=== PATIENT | male | born 1955 | race Caucasian/White ===

== ENCOUNTER 2018-09-28 07:47 | Outpatient (CLI) | payer OTHER, SELFPAY ==
[2018-09-28 09:13] LABS: Glucose 111 mg/dL (70-100)
[2018-09-29 10:33] LABS: Hep B Core Antibody Negative (NEGAT)
== END 2018-09-28 08:07 ==
PROVIDERS: PCP Family Medicine; Visit Provider Family Medicine
DX: E66.3 Overweight (principal); Z11.59 Encounter for screening for other viral diseases
CPT/HCPCS: 36415; 82947; 86704

== ENCOUNTER 2018-12-25 13:34 | Outpatient (CLI) | payer OTHER, SELFPAY ==
--- NOTE | 2018-12-25 14:45 | DI.CT_ITS ---
SYMPTOMS/DIAGNOSIS: STONE EVALUATION, ACUTE FLANK PAIN, KIDNEY STONES, R10.9, N20.[address]: Routine examination was performed. There are no priors for comparison. There is no evidence of a right nephrolithiasis or right ureterolithiasis. No dilatation of the right renal collecting system is seen. In the left kidney there is a collection of calcifications in the upper pole measuring 0.8 cm in diameter. No ureterolithiasis or hydronephrosis is identified. The urinary bladder is intact. The prostate gland is unremarkable. The unenhanced visualized portions of the liver, spleen, gallbladder and pancreas are unremarkable. The visualized portions of the adrenal glands are unremarkable. The abdominal aorta is of normal caliber. No significant abdominal or pelvic adenopathy, ascites or pneumoperitoneum is present. There is diverticulosis of the colon but no evidence of acute diverticulitis. No evidence of bowel obstruction is seen. Degenerative changes are seen in the spine. IMPRESSION: Left nephrolithiasis. No evidence of obstructive uropathy.
== END 2018-12-25 13:54 ==
PROVIDERS: PCP Family Medicine; Visit Provider Urology
DX: N20.0 Calculus of kidney (principal); R10.32 Left lower quadrant pain; K57.30 Diverticulosis of large intestine without perforation or abscess without bleeding
CPT/HCPCS: 74176

== ENCOUNTER 2018-12-28 07:20 | Day surgery (SDC) | payer OTHER, SELFPAY ==
[2018-12-28 07:55] VITALS: BP 158/110; PULSE 82; RESP 16; TEMP 36.2; O2SAT 98
[2018-12-28] MEDS: Lactated Ringers 1,000 ML 80 ML IV (08:21)
--- NOTE | 2018-12-28 08:36 | DI.RAD_ITS ---
SYMPTOMS/DIAGNOSIS: LEFT KIDNEY STONE RETROGRADE C-ARM FLUOROSCOPY: Fluoroscopy Time: 10.3 Fluoroscopy was provided for Dr[address] Harrison. A single hardcopy image shows a left ureteral stent. Please see procedure note for details.
[2018-12-28] MEDS: ceFAZolin 2 GM/50 ML BAG IVPB (09:22)
[2018-12-28] MEDS: Omnipaque 300 MG/ML 50 ML BTL (09:33)
[2018-12-28] MEDS: Lidocaine 2% Jelly 11 ML SYR (09:33)
[2018-12-28 10:21] VITALS: BP 177/116; PULSE 72; RESP 19; TEMP 36.4; O2SAT 97
--- NOTE | 2018-12-28 10:21 | W.PM.DSUDISC ---
Discharge Plan Disposition Patient Disposition: HOME Condition: Stable Discharge Details Attending Provider: Sandro Harrison Primary Care Provider: Aung Sheehan Home Meds and New Rx's Prescriptions: No Action albuterol sulfate 90 mcg/actuation HFA aerosol inhaler 1 - 2 puff Inhalation Q4H PRN Qty: 2 RF: 2 ibuprofen 800 mg tablet 800 mg PO Q8H PRN (Reason: prostatitis) Qty: 90 RF: 1 tramadol 50 mg tablet 50 mg PO Q6H PRN (Reason: pain) Qty: 20 RF: 0 atorvastatin 10 mg tablet 10 mg PO QPM Qty: 90 RF: 3 Discharge Instructions Additional Instructions: My office with contact pt with plans for next procedure If urine is transparent, may remove burciaga prior to discharge - otherwise, burciaga to leg bag and we will remove burciaga in office when output clears Activity:: Activity as Tolerated Shower/Bathe:: 24 hours Diet:: As Tolerated Discharge Orders Discharge Orders: Discharge Order (Routine); Ordered 12/28/18 Ordered By: Sandro Harrison DS: Diagnosis Discharge Diagnosis (1) Kidney stones: Status: Chronic
[2018-12-28 10:26] VITALS: BP 186/104; PULSE 70; RESP 20; TEMP 36.4; O2SAT 96
[2018-12-28 10:31] VITALS: BP 135/91; PULSE 71; RESP 17; TEMP 36.4; O2SAT 96
[2018-12-28 11:00] VITALS: BP 133/76; PULSE 67; RESP 13; TEMP 36.4; O2SAT 95
[2018-12-28 12:00] VITALS: BP 122/86; PULSE 62; RESP 18; TEMP 36.1; O2SAT 95
--- NOTE | 2018-12-28 13:03 | ROE_ITS ---
DATE OF PROCEDURE: December 28, 2018 PREOPERATIVE DIAGNOSIS: Left kidney stone. POSTOPERATIVE DIAGNOSIS: Same. PROCEDURE: Cystoscopy; left retrograde pyelogram; left flexible ureteroscopy; holmium laser of renal stone; insert left ureteral stent. SURGEON: Sandro Harrison M.D. ANESTHESIA: General. COMPLICATIONS: None. ESTIMATED BLOOD LOSS: 100 cc's HISTORY: This is a 63-year-old gentleman who presented with left-sided flank pain. He was found to have a 12 mm left upper pole kidney stone that was non-obstructing on CT scan. Since he was symptoma tic, he presents for stone manipulation. OPERATIVE REPORT: The patient was brought to the Operating Room on 12/28/18. After successful inducti on of general anesthesia, he was placed in the dorsal lithotomy position. His genitalia was prepped and draped. A 22 Bulgarian rigid cystoscope was passed through the urethra into the bladder. The bladder was inspec sky with the 30-degree lens. The pendulous, bulbous and membranous urethras all appeared normal. The prostatic urethra shows some lateral lobe enlargement but no significant median lobe. The left ureteral orifice was then identified. The orifice was cannulated with a 6 Bulgarian access cat heter. A retrograde film was obtained by injecting Omnipaque through the access catheter under fluor oscopic guidance. This allowed us to outline the upper pole calyx that contained the stone. We then passed a Guidewire through the access catheter and maneuvered it up the ureter. We removed t he access catheter and replaced it with a dual-lumen catheter. A second wire was then positioned. We chose one of the wires as a working wire and the other as a sa fety wire. We then passed a ureteral access sheath over the working wire, leaving the safety wire in place. We advanced the flexible ureteroscope up the access sheath. We maneuvered the scope into the upper p ole calyx and we were able to visualize the stone in one of the posteriorly-situated calyces. We treated the stone with a 272 micron holmium laser fiber. The stone fractured in several pieces. I attempted to grasp the fragments and bring them into the area of the renal pelvis for ease of manip ulation, but I was unable to do so. With additional manipulation, visibility became an issue. For the sake of safety, we decided to plac e a ureteral stent and come back in a week or two for a staged procedure. I passed a 4.8 Bulgarian variable-length stent over the safety wire. The stent was positioned with the proximal end curled in the renal pelvis and the distal end curled within the bladder. The position o f the stent was confirmed both fluoroscopically and cystoscopically. The bladder was emptied and the scope was removed. Because of bleeding, we placed a 16 Bulgarian Mckeon catheter through the urethra into the bladder. We inflated the catheter balloon with 10 cc's of ster ile water and hooked the catheter to gravity drainage. If the [facility], the catheter will be removed before discharge.
== END 2018-12-28 12:26 | disposition home or self-care (01) ==
PROVIDERS: PCP Family Medicine; Visit Provider Urology
PROC: (CPT 52356; principal; 2018-12-28 09:00)
DX: N20.0 Calculus of kidney (principal); Z87.442 Personal history of urinary calculi
CPT/HCPCS: 52356; 74420; J0690; J1885; J2405; J3010; Q9967

== ENCOUNTER 2019-01-07 08:00 | Day surgery (SDC) | payer OTHER, SELFPAY ==
[2019-01-07 08:17] VITALS: BP 147/98; PULSE 75; RESP 16; TEMP 36.7; O2SAT 95
[2019-01-07] MEDS: Lactated Ringers 1,000 ML 80 ML IV (08:40)
--- NOTE | 2019-01-07 08:51 | HPE_ITS ---
Date of service: 01/07/19 Time of Service: 08:51 Assessment and Plan (1) Kidney stones: Current visit: No Status: Chronic We will plan on removing his indwelling ureteral stent. We will pass the flexible ureteroscope up to the left kidney and extract any residual stone fragments. Should any of the fragments be of significant size, we will have our holmium laser available. History of Present Illness Chief Complaint: Left kidney stone Narrative: This is a 63-year-old gentleman who has a past history of kidney stones. We had seen him recently with a left flank pain. We identified a large stone in the upper pole of the left kidney. He underwent flexible ureteroscopy and holmium laser of the stone. We lost visibility during that procedure, so not all stone fragments were removed. We placed a stent and he comes back in for a planned ureteroscopy and evacuation of stone fragments. We will have the laser available should any of the stone fragments be too large to extract He has not had issues with his stent. He had some gross hematuria for the first few days after his initial procedure. He believes he may have passed some stones throughout the week. Review of Systems Review of Systems No fevers or chills No vision change or dysphasia No diabetes or thyroid Hx asthma, but no recent shortness of breath, cough or hemoptysis No chest pain or palpitations No nausea, vomiting, hepatitis, ulcers, jaundice, diarrhea or constipation No seizures, strokes or peripheral neuropathy No bleeding disorders or anemia No gout [facility] Social History (Updated 04/30/18 @ 08:40 by Judi Conklin) Smoking/Tobacco Use Status: Never Second Hand Exposure: Yes Alcohol Intake: current Alcohol Intake frequency: a few times a week Alcohol type: beer, wine and hard liquor Drug use: Never Substance use type: does not use current occupation: PHARMACIST Pets and animals: Yes Pets and animals: dog(s) Duration: 15-30 minutes/day Frequency: daily Aleisha/Nondenominational: No preference Special aleisha needs: No Seatbelt use: always Helmet use: Yes Do you feel safe at home: Yes Do you feel safe in your relationship?: Yes Meds Home Medications Medication Instructions Recorded Confirmed Type albuterol sulfate 90 mcg/actuation 1 - 2 puff INHALATION Q4H PRN #2 gm 04/29/18 01/07/19 Rx aerosol inhaler ibuprofen 800 mg tablet 800 mg PO Q8H PRN #90 tab 04/29/18 01/07/19 Rx atorvastatin 10 mg tablet 10 mg PO QPM #90 tab 09/29/18 01/07/19 Rx tramadol 50 mg tablet 50 mg PO Q6H PRN #20 tab 12/25/18 01/07/19 Rx Allergies Allergy/AdvReac Type Severity Reaction Status Date / Time apple Allergy Intermediate Unverified 01/07/19 08:23 morphine AdvReac Nausea Unverified 01/07/19 08:23 Exam Narrative Exam Narrative: He is in no current distress. He is cooperative. His vital signs documented elsewhere. His neck is supple with no mass. His chest wall motion is normal. His lungs are clear. Cardiac exam shows a regular rate and rhythm. His abdomen is soft. He has no CVA tenderness. He is awake, alert and oriented. Results Last Vital Signs Temp 36.7 C 01/07/19 08:17 Pulse 75 01/07/19 08:17 Resp 16 01/07/19 08:17 BP 147/98 H 01/07/19 08:17 Pulse Ox 95 01/07/19 08:17
[2019-01-07] MEDS: ceFAZolin 2 GM/50 ML BAG IVPB (09:20)
[2019-01-07] MEDS: Lidocaine 2% Jelly 6 ML SYR (09:32)
[2019-01-07] MEDS: Omnipaque 300 MG/ML 50 ML BTL (09:32)
--- NOTE | 2019-01-07 10:10 | W.PM.DSUDISC ---
Discharge Plan Disposition Patient Disposition: HOME Condition: Stable Discharge Details Reason For Visit: kidney stone Attending Provider: Sandro Harrison Primary Care Provider: Aung Sheehan Home Meds and New Rx's Prescriptions: No Action albuterol sulfate 90 mcg/actuation HFA aerosol inhaler 1 - 2 puff Inhalation Q4H PRN Qty: 2 RF: 2 ibuprofen 800 mg tablet 800 mg PO Q8H PRN (Reason: prostatitis) Qty: 90 RF: 1 tramadol 50 mg tablet 50 mg PO Q6H PRN (Reason: pain) Qty: 20 RF: 0 atorvastatin 10 mg tablet 10 mg PO QPM Qty: 90 RF: 3 Discharge Instructions Additional Instructions: No need to strain urine Expect some blood in urine for @ 48 hours F/U 4 to 6 weeks with renal US and review stone analysis Activity:: Activity as Tolerated Diet:: As Tolerated Discharge Orders Discharge Orders: Discharge Order (Routine); Ordered 01/07/19 Ordered By: Sandro Harrison DS: Diagnosis Discharge Diagnosis (1) Kidney stones: Status: Chronic
--- NOTE | 2019-01-07 10:22 | DI.RAD_ITS ---
SYMPTOM/DIAGNOSIS: KIDNEY STONES, LEFT KIDNEY C-ARM FLUOROSCOPY: 01/07 Fluoroscopy Time: 29.9 sec 8.61 mGy C-arm fluoroscopy was utilized by Dr. Harrison. Please see Dr. Harrison's procedure note. Hard copies show retrograde cannulation of left renal collecting system.
[2019-01-07 10:27] VITALS: BP 81/39; PULSE 74; RESP 14; TEMP 36.5; O2SAT 97
[2019-01-07 10:32] VITALS: BP 90/45; PULSE 68; RESP 15; TEMP 36.5; O2SAT 97
[2019-01-07 10:37] VITALS: BP 152/88; PULSE 69; RESP 15; TEMP 36.5; O2SAT 96
[2019-01-07 10:52] VITALS: BP 162/90; PULSE 65; RESP 16; TEMP 36.6; O2SAT 96
[2019-01-07 11:30] VITALS: BP 128/88; PULSE 64; RESP 18; TEMP 36.1; O2SAT 97
--- NOTE | 2019-01-08 09:28 | ROE_ITS ---
DATE OF PROCEDURE: January 07, 2019 PREOPERATIVE DIAGNOSIS: Left kidney stone. POSTOPERATIVE DIAGNOSIS: Left kidney stone. PROCEDURE: Cystoscopy; remove left ureteral stent; left flexible ureteroscopy; stone extraction; hol mium laser lithotripsy of residual stone fragments. SURGEON: Sandro Harrison M.D. ANESTHESIA: General. COMPLICATIONS: None. ESTIMATED BLOOD LOSS: Minimal. HISTORY: This is a 63-year-old gentleman with a past history of kidney stones. He recently presente d with left-sided flank pain. He was found to have a large stone in the upper pole of his left kidne y. We addressed it ureteroscopically about a week ago. We were able to visualize the stone and frac ture it, but visibility became an issue so we elected to place a ureteral stent with plans on returni ng to the Operating Room this week to remove any stone fragments. OPERATIVE REPORT: The patient was brought to the Operating Room on 01/07/19. After successful induct ion of general anesthesia he was placed in the dorsal lithotomy position. His genitalia was prepped and draped. A 22 Ghanaian rigid cystoscope was passed through the urethra into the bladder. The bladder was inspec sky with a 30-degree lens. The left ureteral stent was visualized. The stent was grasped with an alligator forceps and removed in its entirety. We were then able to pass a 6 Ghanaian access catheter through the urethra into the bladder. The melecio ter was introduced into the left ureteral orifice. A Glidewire was advanced over the catheter and we then removed the access catheter and cystoscope. A dual-lumen catheter was advanced over the wire and a second wire was positioned. We chose one of t he wires as a working wire and the other as a safety wire. We passed a ureteral access sheath over the working wire, leaving the safety wire in place. We then passed a flexible ureteroscope up the access sheath and maneuvered the scope into the upper pole magdalena x that contained the stone. We grasped one of the stone fragments in a Zero-Tip stone basket. We ex tracted that fragment and sent it to the lab for chemical analysis. The other visible fragments were treated with the 272 micron holmium laser. We used a dusting setting of a power of 200 and a rate o f 8. There did appear to be some residual stone, but it was adherent to the calyceal mucosa, so we did not attempt to extract these fragments. The scope was removed. The patient tolerated this procedure well with no complications.
[2019-01-12 14:32] LABS: Source: Left Ureter
== END 2019-01-07 11:47 | disposition home or self-care (01) ==
PROVIDERS: PCP Family Medicine; Visit Provider Urology
PROC: (CPT 52353; principal; 2019-01-07 09:30)
DX: N20.0 Calculus of kidney (principal)
CPT/HCPCS: 52353; NC; 74420; 82365; J0690; J1885; J2405; J3010; Q9967

== ENCOUNTER 2019-02-23 00:40 | Outpatient (CLI) | payer OTHER, SELFPAY ==
--- NOTE | 2019-02-23 15:43 | DI.US_ITS ---
EXAM: US RENAL CLINICAL HISTORY: r/o hydronephrosis after ureteroscopy, N20.0 CALCULUS OF KIDNEY. TECHNIQUE: Ultrasound performed using standard protocol. COMPARISON: No exams were available for comparison FINDINGS: The right kidney measures 12.4 cm. No renal mass, calculus, or obstruction is identified. The left kidney measures 12.2 cm. There is no evidence of hydronephrosis. There are 2 echogenic foci seen wi thin the left kidney. There is a 5 mm focus in the midpole. There is a 1.8 cm focus in the superior pole. These are suspicious for nonobstructing renal calculi. There is a 1.8 cm cyst in the superio r pole of the left kidney. The prevoid urinary bladder volume is 61 cc. The postvoid urinary bladde r volume is 21 cc. IMPRESSION: Left nephrolithiasis. No evidence of obstructive uropathy.
== END 2019-02-23 01:00 ==
PROVIDERS: PCP Family Medicine; Visit Provider Urology
DX: N20.0 Calculus of kidney (principal); N28.1 Cyst of kidney, acquired
CPT/HCPCS: 76770

== ENCOUNTER 2019-07-30 06:08 | Day surgery (SDC) | payer OTHER, SELFPAY ==
[2019-07-30 06:14] VITALS: BP 146/94; PULSE 74; RESP 16; TEMP 36.7; O2SAT 95
[2019-07-30] MEDS: Lactated Ringers 1,000 ML 80 ML IV (06:40)
--- NOTE | 2019-07-30 07:48 | BOWEL_PTH ---
PATIENT: Clement Nunn LOC: [facility] U#:[id number] AGE/SX: 64/M ROOM: RE07/30/[address]: Asia Gresham MD : [id number] BED: DIS: 07/30/2019 SPEC #: [id number] RECD: 07/30/19 12:58 STATUS: MANOHAR REQ #: [id number] KAMI: 07/30/19 07:[address]: Asia Gresham DEPT: Surgical Specimen RECD BY: Jacque Villalobos ENTERED: 07/30/19 12:59 SP TYPE: Bowel OTHR DR: Aung Sheehan MD Tissues: 1 - BIOPSY BOWEL Procedures: GROSS AND MICRO LEVEL 4 Comments: [id number]
--- NOTE | 2019-07-30 08:01 | W.PM.DSUDISC ---
Discharge Plan Disposition Patient Disposition: HOME Discharge Details Reason For Visit: SCREENING Attending Provider: Asia Gresham Primary Care Provider: Aung Sheehan Home Meds and New Rx's Prescriptions: Continued albuterol sulfate 90 mcg/actuation HFA aerosol inhaler 1 - 2 puff Inhalation Q4H PRN Qty: 2 RF: 2 ibuprofen 800 mg tablet 800 mg PO Q8H PRN (Reason: prostatitis) Qty: 90 RF: 1 Shingrix Adjuvant Component-PF Suspension 0.5 ml IM DAILY Qty: 0.5 RF: 1 atorvastatin 10 mg tablet 10 mg PO QPM Qty: 90 RF: 3 losartan 100 mg tablet 100 mg PO DAILY Qty: 90 RF: 3 Discharge Instructions Additional Instructions: Findings: One small polyp was removed. My office will contact you with biopsy results. Mild diverticulosis was found. Make sure to take in 30 grams of fiber daily. Follow up: If the polyp is adenomatous, you will need a colonoscopy in 5 years. Please call if you develop: fevers >101.5 Nausea or Vomiting Abdominal pain that is not transient DAY SURGERY UNIT POST COLONOSCOPY INSTRUCTIONS 1. Because there will be medication in your system for the next 24 hours, you may feel a little sleepy. Your coordination will be affected. Therefore: a. Do not drive or operate dangerous equipment for 24 hours. b. Do not drink alcohol beverages for 24 hours (not even beer). c. Plan to go home and rest for the day. 2. Generally there are no restrictions on your activity after a day or so has gone by, but you may feel a bit fatigued for a few days. 3 After you arrive home you may have a light meal and return to a normal diet as you can tolerate it without feeling sick to your stomach. 4. After surgery, you may feel pain or discomfort. This should be only transient, but if it persists please contact your doctor. 5. If there are any questions regarding the findings of your procedure, please feel free to contact your doctor. 6. If you are unable to contact your doctor with a problem, contact the hospital at [phone]. 7. Continue all your regular medications unless directed otherwise. I understand the above instructions and have no questions. Signature of Patient or Responsible Adult Escort Date/Time Name of Responsible Adult Escort Signature of Nurse Date/Time Activity:: Activity as Tolerated Diet:: As Tolerated Discharge Orders Discharge Orders: Discharge Order (Routine); Ordered 07/30/19 Ordered By: Asia Gresham DS: Diagnosis Discharge Diagnosis (1) Diverticulosis: Status: Acute (2) Rectal polyp: Status: Acute
--- NOTE | 2019-07-30 08:05 | COLE_ITS ---
DATE: JULY 30, 2019 Preoperative Diagnosis: Screening Postoperative Diagnosis: 1. Mild diverticulosis 2. Rectal polyp Operation: Colonoscopy with cold forceps polypectomy Anesthesia: General Surgeon: Asia Gresham M.D. Indications: This is a 64 year-old male who presents for routine colon evaluation. His last one in 2008 was normal. He denies symptoms or family history of colon cancer. Procedure: He was placed in the left León position. Propofol was titrated to sedation. Digital rectal exam revealed no abnormalities. The scope was advanced to the cecum without difficulty. His prep was excellent. The ileocecal valve and appendiceal orifice were clearly identified. The scope was slowly withdrawn with no abnormalities seen within the ascending, transverse or descending colon. In the sigmoid region he was noted to have mild diverticular change. Retroflexed view in the rectum showed a diminutive polyp a few cm. from the anal verge. This was removed completely with the cold forceps. It was retrieved for pathology. The air was suctioned from the colon and the scope was withdrawn. He tolerated the procedure well and was stable to recovery. If the polyp is adenomatous, he will need a colonoscopy again in five years.
[2019-07-30 08:30] VITALS: BP 142/92; PULSE 72; RESP 16; TEMP 36.5; O2SAT 98
== END 2019-07-30 08:44 | disposition home or self-care (01) ==
PROVIDERS: PCP Family Medicine; Visit Provider Surgery
PROC: 0DJD8ZZ Inspection of Lower Intestinal Tract, Via Natural or Artificial Opening Endoscopic (ICD-10-PCS; CPT 45378; principal; 2019-07-30 07:30)
DX: Z12.11 Encounter for screening for malignant neoplasm of colon (principal); K62.1 Rectal polyp; K57.30 Diverticulosis of large intestine without perforation or abscess without bleeding; I10 Essential (primary) hypertension
CPT/HCPCS: 45380; 88305; J2001

== ENCOUNTER 2019-12-31 02:05 | Outpatient (CLI) | payer OTHER, SELFPAY ==
[2019-12-31 13:17] LABS: Hemoglobin A1C 5.6 % (3.8-5.6)
[2019-12-31 13:48] LABS: Anion Gap 8.7 mmol/L (3-11); BUN 17 mg/dL (7-18); CO2 29.3 mmol/L (21.0-32.0); CREATININE 1.02 mg/dL (0.70-1.30); Calculated LDL 111 mg/dL (<100); Chloride 103 mmol/L (98-107); Cholesterol 200 mg/dL (<200); Glucose 91 mg/dL (74-106); HDL Cholesterol 48 mg/dL (40-60); Potassium 4.3 mmol/L (3.5-5.1); Sodium 141 mmol/L (136-145); Triglyceride 206 mg/dL (<150)
[2020-01-03 09:25] LABS: PSA, Screening 1.3 ng/mL (0.0-4.5)
[2020-01-03 11:14] LABS: Hepatitis C Ab w Rflx HCV PCR Negative (Negative)
== END 2019-12-31 02:25 ==
PROVIDERS: PCP Family Medicine; Visit Provider Urology
DX: N41.1 Chronic prostatitis (principal); N20.0 Calculus of kidney; Z00.00 Encounter for general adult medical examination without abnormal findings
CPT/HCPCS: 36415; 80048; 80061; 84153; 86803; 83036

== ENCOUNTER 2021-08-31 02:53 | Outpatient (CLI) | payer OTHER, SELFPAY ==
[2021-08-31 10:35] LABS: CREATININE 0.9 mg/dL (0.70-1.30); Calculated LDL 76 mg/dL (<100); Cholesterol 142 mg/dL (<200); HDL Cholesterol 51 mg/dL (40-60); Potassium 4.7 mmol/L (3.5-5.1); Triglyceride 75 mg/dL (<150)
== END 2021-08-31 02:54 | disposition home or self-care (01) ==
LOC: LBO 02:53
PROVIDERS: PCP Family Medicine; Visit Provider Family Medicine
DX: I10 Essential (primary) hypertension (principal); E78.5 Hyperlipidemia, unspecified
CPT/HCPCS: 36415; 80061; 82565; 84132

== ENCOUNTER 2022-06-13 03:57 | Outpatient (CLI) | payer OTHER, SELFPAY ==
[2022-06-14 09:00] LABS: PSA, Screening 1.5 ng/mL (<=4.5)
== END 2022-06-13 03:58 | disposition home or self-care (01) ==
LOC: LBO 03:58
PROVIDERS: PCP Family Medicine; Visit Provider Nurse Practitioner Gerontology
DX: N40.0 Benign prostatic hyperplasia without lower urinary tract symptoms (principal); N41.1 Chronic prostatitis; Z12.5 Encounter for screening for malignant neoplasm of prostate
CPT/HCPCS: 36415; 84153

== ENCOUNTER 2023-10-07 05:16 | Outpatient (CLI) | payer OTHER, SELFPAY ==
[2023-10-07 09:42] LABS: Anion Gap 5.7 mmol/L (3-11); BUN 17 mg/dL (7-18); CO2 33.3 mmol/L (21.0-32.0); Calcium 9.6 mg/dL (8.5-10.1); Chloride 100 mmol/L (98-107); Estimated GFR 83.01 (mL/min/1.73m2); Glucose 122 mg/dL (74-106); Potassium 4.2 mmol/L (3.5-5.1); Sodium 139 mmol/L (136-145)
== END 2023-10-07 05:17 | disposition home or self-care (01) ==
LOC: LBO 05:16
PROVIDERS: PCP Family Medicine; Visit Provider Family Medicine
DX: E87.1 Hypo-osmolality and hyponatremia (principal)
CPT/HCPCS: 36415; 80048

== ENCOUNTER 2024-06-15 10:26 | Outpatient (CLI) | payer OTHER, SELFPAY ==
[2024-06-15 10:46] LABS: Hemoglobin A1C 5.8 % (<5.7)
[2024-06-15 18:21] LABS: PSA, Diagnostic 1.8 ng/mL (<=4.5)
== END 2024-06-15 10:27 | disposition home or self-care (01) ==
LOC: LBO 10:26
PROVIDERS: PCP Family Medicine; Visit Provider Urology
DX: N41.1 Chronic prostatitis (principal); E11.51 Type 2 diabetes mellitus with diabetic peripheral angiopathy without gangrene; I70.209 Unspecified atherosclerosis of native arteries of extremities, unspecified extremity
CPT/HCPCS: 36415; 83036; 84153